=== PATIENT | female | born 1950 | race African-American/Black ===

== ENCOUNTER 2016-12-11 13:07 | Day surgery (SDC) | payer MEDICARE, OTHER ==
[~2016-12-11] VITALS: Ht 165.1 cm; Wt 91.4 kg
[2016-12-11 15:40] VITALS: Ht 165.1 cm; Wt 91.4 kg
[2016-12-11] MEDS ORDERED: HYD25 PO (15:46)
[2016-12-11] MEDS ORDERED: ASPI-664 PO (15:46)
[2016-12-11] MEDS ORDERED: ACET500C5 PO (15:46)
[2016-12-11] MEDS ORDERED: METF-480 PO (15:46)
[2016-12-11] MEDS ORDERED: POTA1GRA MC (15:46)
[2016-12-11] MEDS ORDERED: ATOR80TA75 PO (15:46)
[2016-12-11] MEDS ORDERED: PROPOFOL 20 ML ONE (15:50)
[2016-12-11] MEDS ORDERED: MIDAZOLAM 1 MG/ML 2 ML INJ ONE (15:51)
[2016-12-11] MEDS ORDERED: FENTAnyl 50 MCG/ML VIAL ONE (15:51)
[2016-12-11 15:59] VITALS: BP 143/77; PULSE 75; RESP 23
[2016-12-11 16:40] VITALS: BP 145/91; PULSE 78; RESP 18
--- NOTE | 2016-12-15 04:59 | GILP ---
DATE OF PROCEDURE: PROCEDURE: Colonoscopy with biopsies. PREMEDICATION: Monitored anesthesia care by anesthesiologist. BRIEF HISTORY AND INDICATIONS: The patient with family history of colon cancer. PREMEDICATION: Monitored anesthesia care by anesthesiologist. SURGEON: Jamia Alcocer MD INSTRUMENT USED: Olympus colonoscope. PREPARATION: Adequate. TECHNIQUE: After informed consent, with the patient/relatives understanding the procedure, its indic ations potential risks and complications, including but not limited to: allergic reaction, bleeding, perforation, infection, missed lesions and after all pertinent questions were answered to the patie nt's satisfaction, the patient/relatives signed the witnessed informed consent. Following this, premedication was administered slowly IV push by under careful cardiovascular and re spiratory monitoring with pulse oximetry, automatic blood pressure and quality assurance monitor. Once the sedativ e effect was achieved, the patient was placed in the left lateral decubitus position, digital rectal examination was performed. The colonoscope was then introduced and advanced under visual control th roughout all segments of the colon including: the rectum, sigmoid, descending colon, splenic flexure , transverse colon, hepatic flexure, ascending colon and finally reaching the cecum which was clearl y identified by transillumination, finger indentation and the ileocecal valve. Careful examination o f the mucosa of the lower gastrointestinal tract both on insertion as well as withdrawal of the inst rument disclosed the following findings: Colonic Mucosa: There is mild erythema of the mucosa of the left side of the colon. Biopsies were obtained. Otherwise, the mucosa appears unremarkable. The ileocecal valve was clearly identified a nd appears unremarkable. The instrument with withdrawn. On withdrawal of the instrument, no additi onal abnormalities are noted. Random biopsies were obtained of the right and left side of the colon . Moderate size internal hemorrhoids are present. The instrument was then withdrawn, the patient tolerated the procedure well and was transferred out of the [facility] awake and in good condition to continue recovery under observation. IMPRESSION: 1. Mild erythema of the mucosa of the left side of the colon. Biopsies obtained. 2. Rule out microscopic lymphocytic or collagenous colitis. 3. Moderate-sized internal hemorrhoids. 4. Family history of colon cancer. PLAN: The patient will be followed up as an outpatient. Pathology will be reviewed as soon as avai lable, and annual Hemoccult stool testing is recommended. Colonoscopy screening in 5 years is recom mended given high risk. Dictated By: JAMIA ALCOCER MS/NTS Conf#: [id number] DID#: [id number]
== END 2016-12-11 16:29 | disposition home or self-care (01) ==
LOC: GIL 13:07
PROVIDERS: ATTEND Internal Medicine Gastroenterology
DX: Z12.11 Encounter for screening for malignant neoplasm of colon (principal); K64.8 Other hemorrhoids; Z80.0 Family history of malignant neoplasm of digestive organs; I10 Essential (primary) hypertension; E78.5 Hyperlipidemia, unspecified; E66.9 Obesity, unspecified; Z68.33 Body mass index [BMI] 33.0-33.9, adult
CPT/HCPCS: 45380; 88305; J2250; J3010